=== PATIENT | female | born 1955 | race Caucasian/White ===

== ENCOUNTER → 2018-01-01 | Outpatient (CLI) | payer BC ==
--- NOTE | 2018-01-01 13:35 | KCIC ---
EXAM: Abdomen acute complete. HISTORY: Pain after EGD. COMPARISON: None. FINDINGS: A frontal view of the chest and frontal upright and supine views of the abdomen are obtained. There is no infiltrate, pleural effusion or pneumothorax. No pneumomediastinum is seen. There is no intraperitoneal free air. No abnormally dilated loop of bowel seen. There is moderate proximal colonic stool. IMPRESSION: 1. No acute pulmonary finding. 2. Nonobstructive bowel gas pattern. Electronically signed by: Ana Moura MD (01/01/2018 1:32 PM) [place] [id number]
== END | disposition home or self-care (01) ==
LOC: KCIC 13:01
PROVIDERS: ATTEND Internal Medicine
DX: R07.9 Chest pain, unspecified (principal); K21.9 Gastro-esophageal reflux disease without esophagitis
CPT/HCPCS: 74022

== ENCOUNTER → 2021-08-30 | Outpatient (CLI) | payer BC, MEDICARE, OTHER ==
--- NOTE | 2021-08-30 14:37 | KCIC ---
EXAMINATION: DG BARIUM SWALLOW (ESOPHAGRAM) CLINICAL HISTORY: Recurrent dysphagia x1 month. History of prior esophageal dilation, most recently o raimundo one year ago. TECHNIQUE: Double contrast esophagram performed utilizing effervescent granules followed by oral admi nistration of thick and thin barium. - Number of Images: 10 image sets - Fluoroscopy Time: 1 minute 13 seconds COMPARISON: 01/13/2016 FINDINGS: Hypopharynx and cervical esophagus unremarkable. No evidence of esophageal stricture, ring, or mass. No evidence of esophagitis. Tiny hiatal hernia. No reflux elicited despite provocative maneuvers. Esophageal motility within normal limits. Barium tablet initially stalled in the in the midesophagus without reproduction of patient's symptoms , but passed into the stomach with ease following additional sips of water. IMPRESSION: Tiny hiatal hernia, otherwise unremarkable esophagram. Electronically signed by: Fito Lopez DO (08/30/2021 2:35 PM) [id number]
== END ==
LOC: KCIC 12:19
PROVIDERS: ATTEND Physician Assistant
DX: R13.10 Dysphagia, unspecified (principal); K44.9 Diaphragmatic hernia without obstruction or gangrene
CPT/HCPCS: 74220